=== PATIENT | male | born 1975 | race Two or more races ===

== ENCOUNTER 2021-03-02 21:49 | Emergency (ER) | payer MEDICAID, OTHER ==
[~2021-03-02] VITALS: Ht 177.8 cm; Wt 77.1 kg
[2021-03-03 01:00] VITALS: BP 142/96
[2021-03-03] MEDS ORDERED: LIDOCAINE 1% HCL (LOCAL ANESTH.) INJ 20ML MDV ID ONE (02:00)
[2021-03-03] MEDS ORDERED: NEOMYCIN-BACITRACIN-POLYM UNITDOSE PKG TOP OINT TOP ONE (02:00)
== END 2021-03-03 03:25 | disposition home or self-care (01) ==
LOC: ER 21:49
DX: S01.111A Laceration without foreign body of right eyelid and periocular area, initial encounter (principal); R51.9 Headache, unspecified; W07.XXXA Fall from chair, initial encounter; Y93.89 Activity, other specified; Y92.89 Other specified places as the place of occurrence of the external cause; Y99.8 Other external cause status
CPT/HCPCS: 12011; 70450; 99284; J2001